=== PATIENT | male | born 1990 | race Caucasian/White ===

== ENCOUNTER 2020-08-01 15:06 | Emergency (ER) | payer OTHER ==
[2020-08-01 18:07] LABS: HEMOGLOBIN 15.3 gm/dl (14.0-17.5); RED BLOOD COUNT 4.74 M/UL (4.20-5.50); WHITE BLOOD COUNT 7.5 K/UL (4.5-11.0)
[2020-08-01 18:30] LABS: BUN/CREATININE RATIO 18 (0-10)
[2020-08-01] MEDS ORDERED: ZOFRAN ODT 4 MG4 MG PO (19:02)
[2020-08-03 11:15] LABS: HBSAG SCREEN Negative (Negative); HEP A AB, IGM Negative (Negative); HEP B CORE AB, IGM Negative (Negative); HEP C VIRUS AB <0.1 (0.0-0.9)
== END 2020-08-01 20:38 | disposition home or self-care (01) ==
LOC: ER1 15:06
PROVIDERS: Physician Assistant
DX: E86.0 Dehydration (principal); R11.2 Nausea with vomiting, unspecified; R10.9 Unspecified abdominal pain; F17.210 Nicotine dependence, cigarettes, uncomplicated; Z20.822 Contact with and (suspected) exposure to COVID-19; Z88.8 Allergy status to other drugs, medicaments and biological substances
CPT/HCPCS: 0240U; 80053; 80074; 81001; 82150; 83690; 85025; 96374; 99284; J2405; J7030

== ENCOUNTER 2021-03-15 14:14 | Emergency (ER) | payer BC ==
[~2021-03-15] VITALS: Ht 172.7 cm; Wt 86.2 kg
[~2021-03-15 14:14] MED LIST: ZOFRAN ODT 4 MG4 MG PO
[2021-03-15 16:38] LABS: HEMOGLOBIN 16.1 gm/dl (14.0-17.5); RED BLOOD COUNT 4.73 M/UL (4.20-5.50); WHITE BLOOD COUNT 9.3 K/UL (4.5-11.0)
[2021-03-15 17:03] LABS: BUN/CREATININE RATIO 10 (0-10)
== END 2021-03-15 21:25 | disposition home or self-care (01) ==
LOC: ER1 14:14
PROVIDERS: Physician Assistant
DX: U09.9 Post COVID-19 condition, unspecified (principal); Z72.89 Other problems related to lifestyle; F17.200 Nicotine dependence, unspecified, uncomplicated; I10 Essential (primary) hypertension; Z88.8 Allergy status to other drugs, medicaments and biological substances; Z79.899 Other long term (current) drug therapy
CPT/HCPCS: 71046; 80053; 81001; 83690; 83735; 85025; 85379; 85610; 96374; 96375; 99284; G0480; J2060; J3411; J3475; J7030; Q9967